=== PATIENT | female | born 1995 | race Caucasian/White ===

== ENCOUNTER 2024-11-14 16:26 | Emergency (ER) | payer OTHER, SELFPAY ==
[2024-11-14 16:35] VITALS: BP 135/86
[2024-11-14 17:02] LABS: Hematocrit 41.3 % (37.0-47.0); Hemoglobin 13.9 g/dL (12.0-16.0); Mean Corp Hgb Conc. 33.7 g/dL (33.0-37.0); Mean Corpuscular Volume 83.3 fL (81.0-99.0); Nucleated Red Blood Cells % 0 %; Platelet Count 352 10^3/uL (130-400); Red Cell Dist. Width 13.1 % (11.5-14.5)
[2024-11-14 17:13] LABS: D-Dimer < 0.27 ug/mlFEU (0.00-0.50)
[2024-11-14 17:19] LABS: ALT (SGPT) 15 U/L (0-35); AST (SGOT) 19 U/L (14-36); Albumin 4.3 g/dl (3.5-5.0); Alkaline Phosphatase 80 U/L (38-126); Blood Urea Nitrogen 12 mg/dl (7-17); Calcium 9.5 mg/dl (8.4-10.2); Carbon Dioxide 25 mmol/L (22-30); Chloride 105 mmol/L (98-107); Glucose 91 mg/dl (70-99); Potassium 4.2 mmol/L (3.5-5.1); Sodium 138 mmol/L (135-145); Total Protein 7.4 g/dl (6.3-8.2); eGFR > 60.00
[2024-11-14 17:29] LABS: Troponin I < 0.012 ng/ml
[2024-11-14 19:25] VITALS: BMI 43.1
--- NOTE | 2024-11-14 19:30 | ED.GENMED ---
History of Present Illness
General
Chief Complaint: Chest Pain
Source: patient
Time Seen by Provider: 11/14/24 19:17
History of Present Illness
History of Present Illness:
29-year-old female presents to the emergency room complaining of chest pain. Pain located left side of the chest. Pain described as a intense dull pain. Lasted for 5 minutes and went away. Patient has not had any recurrence of the discomfort.
She does not recall ever having pain such as this before. She denies any associated shortness of breath, diaphoresis or nausea. Pain does not radiate. Patient has felt fine since the pain went away at around 230 or so. Patient went to an urgent
care but was referred here. She does take control pill and Zepbound. She denies smoking or recreational drug use. She drinks alcohol occasionally. She denies any recent periods of immobilization.
Phy Exam
Physical Exam
Physical Exam:
General: Awake, Alert, Oriented X3. No acute distress.
Vitals: unremarkable
Head: Atraumatic
Eyes: Pupils equal, EOMI
Throat: Airway intact, no exudates
Neck: Trachea midline
Lungs: Clear and equal b/l
Heart: Regular rate, no murmurs
Abd: Soft, Nontender, No pulsatile mass
Neuro: Nonfocal
Skin: Warm, dry, no rash
Extremities: pulses equal b/l, no edema
Scores
Heart Score for Chest Pain Patients
STEMI patient?: No
History: Slightly or Non-Suspicious
ECG: Normal
Age: </= 45 years
Risk Factors: No Risk Factors
Troponin: </= Normal Limit
Heart Score for Chest Pain Patients: 0
Heart Score Risk: 2.5% MACE over next 6 weeks
Course
Orders/Labs/Results
Orders:
Orders
11/14/24 16:27
Electrocardiogram (*1) Urgent
Reason for Study: Chest Pain
EKG- Treatment ONCE
11/14/24 16:48
CMP [Comprehensive Metabolic Panel] Urgent
Complete Blood Count/With Diff Urgent
D-Dimer Urgent
HCG, Serum Qualitative Screen Urgent
Troponin I Urgent
11/14/24 19:29
CR Chest - 2 Views Urgent
Comment:
Reason For Exam: episode left sided chest pain
11/14/24 19:33
Add On- LAB Urgent
Tests Added?: qual hcg
Abnormal Lab Results
11/14/24
16:48
WBC 13.2 H 10^3/uL
(4.8-10.8)
Absolute Neuts (auto) 9.0 H 10^3/uL
(1.4-6.5)
11/14/24 16:48
11/14/24 16:48
Vital Signs
Initial and Last Documented VS:
Initial Vital Signs
Temp Pulse Resp BP Pulse Ox
98.1 F 96 16 135/86 100
11/14/24 16:35 11/14/24 16:35 11/14/24 16:35 11/14/24 16:35 11/14/24 16:35
Last Documented Vital Signs
Temp Pulse Resp BP Pulse Ox
98.1 F 81 16 126/71 100
11/14/24 16:35 11/14/24 19:59 11/14/24 19:59 11/14/24 19:59 11/14/24 19:59
MDM/Problems Addressed
Differential Diagnosis Includes:
Chest wall pain, angina, PE,
MDM/Problems Addressed:
Patient presents with left-sided chest discomfort that lasted 5 minutes. EKG is unremarkable. Troponin is normal. D-dimer is normal. The troponin was measured several hours after the onset of symptoms as the patient initially went to an urgent
care before coming here. Chest x-ray shows no acute abnormality. Patient stable for discharge and follow-up with her primary care provider.
*Radiology
Radiology exam reviewed: preliminary read by ED provider (No acute abnormality)
*Pulse Oximetry
SaO2: 100
Oxygen Mode of Delivery: Room air
Patient hypoxic: no
*EKG
Interpreted by ED Provider?: Yes
Interpretation: normal
Comparison EKG: no comparison EKG present
Heart Rate: 83
Rate: normal
Rhythm: sinus
[place]: normal axis
Interval: normal interval
QRS Pattern: normal QRS
Ischemia: no ischemia
*Researcher Interpretation
Rate: normal
Interpretation: normal
Heart Rate: 83
Rhythm: sinus
*Critical Care Note
Total Time (30-74mins, 75-104mins- exclusive of procedures): Not Applicable
ED Attending Note
-
Portions of this chart may have been created with voice recognition software.� Occasional wrong word or��sound alike� substitutions may have occurred due to the inherent limitations of voice recognition software.
Discharge Plan
Departure
Patient Disposition: Home (Routine Discharge)
Date of Disposition: 11/14/24
Time of Disposition: 19:40
Patient with high blood pressure during this ER visit?: Yes
Condition: Good
Discharge Problem:
Chest pain
Instructions: Chest Pain PCP Follow Up, BLOOD PRESSURE
Interventions
Interventions:
*Risk Screen - Suicide Last Done: 11/14/24 16:35
*General Assessment Last Done: 11/14/24 19:25
*Neglect/Abuse Screening Last Done: 11/14/24 16:35
*ED- Fall Risk Assessment Last Done: 11/14/24 19:25
*ED COVID-19 Vaccine History Last Done: 11/14/24 19:25
*Nursing Disposition Last Done: 11/14/24 19:59
ED- Cardiac Assessment Last Done: 11/14/24 19:25
Discharge Date and Time
Discharge Date/Time: 11/14/24 20:05
Print Language: FAROESE
[2024-11-14 19:59] VITALS: BP 126/71
[2024-11-14 20:16] LABS: HCG, Serum Qualitative Screen Negative
== END 2024-11-14 20:05 | disposition home or self-care (01) ==
LOC: EMR 16:26
PROVIDERS: Emergency Medicine; EMERGENCY PHYSICIAN Emergency Medicine; FAMILY PHYSICIAN Family Medicine
DX: R07.89 Other chest pain (principal)
CPT/HCPCS: 99285; 71046; 80053; 84484; 84703; 85025; 85379; 93005